=== PATIENT | female | born 1940 | race Caucasian/White ===

== ENCOUNTER → 2023-12-25 14:45 | Outpatient (REF) | payer MEDICARE, SELFPAY | LOC: RAD 14:45 | PROVIDERS: ATTENDING PHYSICIAN Obstetrics & Gynecology; FAMILY PHYSICIAN Family Medicine | DX: Z78.0 Asymptomatic menopausal state (principal) | CPT/HCPCS: 77080 ==

== ENCOUNTER 2024-01-28 14:53 | Emergency (ER) | payer MEDICARE, SELFPAY ==
[2024-01-28 14:56] VITALS: BP 179/108
--- NOTE | 2024-01-28 17:53 | ED.GENMED ---
History of Present Illness
<Leslee Roblero PA-C - Last Filed: 01/28/24 21:28>
General
Chief Complaint: DVT/Possible Blood Clot
Source: patient
Exam Limitations: none
Time Seen by Provider: 01/28/24 17:19
Nursing documentation reviewed up to this point in time: agreed with
Travel History
Have you had any contact with someone who has COVID-19?: No
Do you have any symptoms of coronavirus? Fever > 100 degrees, chills, cough, shortness of breath, sore throat, loss of taste or smell, muscle aches, or headache?: No
History of Present Illness
History of Present Illness:
Patient is a 83 year old female with hx HTN, HLD, GERD presenting from vein clinic after having an US that showed a DVT in her left lower leg. She has been experiencing some swelling and discomfort in her left lower leg over the past few weeks. She
also has noticed some discomfort in her mid back and worsening shortness of breath over the past weeks.
Patient denies worsening in back discomfort with deep breaths or movement. She denies any chest pain, fever, chills, dizziness, lightheadedness.
Given the persistence in her lower leg swelling and tenderness�she made an appoint with the pain clinic to have it evaluated. He was at this appointment earlier today when the DVT was found. She was then referred to the emergency department for
further evaluation given the coexisting shortness of breath and back discomfort.
Patient does have a history of a DVT in left lower leg back in 1966 after giving to her first child. She was admitted in the hospital for 10 days receiving anticoagulation.
Phy Exam
<Leslee Roblero PA-C - Last Filed: 01/28/24 21:28>
Physical Exam
Physical Exam:
General: In no apparent distress, non-toxic
Vitals: Mildly tachycardic, hypertensive; otherwise vital signs stable, afebrile
HEENT: Atraumatic, normocephalic; pupils equal round and reactive to light bilaterally, protecting airway
Neck: appears supple, no JVD
CV: Slightly tachycardic, regular rhythm, no evidence of cyanosis
Resp: Lungs clear with no wheezing, rales, rhonchi; no evidence of respiratory distress
Abd: Soft, nontender, non-distended
Extremities: Lower extremities nontender to palpation, negative Homans' sign bilaterally, +1 pitting edema bilateral lower extremities, DP pulses strong and palpable bilaterally
Neuro: alert and oriented x 3; grossly intact
Psych: Normal affect
Skin: Intact
Course
<Leslee Roblero PA-C - Last Filed: 01/28/24 21:28>
Orders/Labs/Results
Orders:
Orders
01/28/24 18:00
Electrocardiogram (*1) Urgent
Reason for Study: Shortness of Breath
EKG- Treatment ONCE
0.9% Sodium Chloride 1000 ml [Nss] 1,000 ml IV BOLUS
01/28/24 18:01
CT Chest Pe Study Urgent
Comment:
Reason For Exam: shortness of breath, known DVT
01/28/24 18:26
Complete Blood Count/With Diff Urgent
Comprehensive Metabolic Panel Urgent
D-Dimer Urgent
PTT Urgent
Prothrombin Time Urgent
Troponin I Urgent
01/28/24 21:03
Apixaban [Eliquis] 10 mg PO NOW STA
Abnormal Lab Results
01/28/24
18:26
RBC 3.87 L 10^6/uL
(4.20-5.40)
Hgb 11.4 L g/dL
(12.0-16.0)
Hct 33.9 L %
(37.0-47.0)
D-Dimer 0.66 H ug/mlFEU
(0.00-0.50)
BUN 26 H mg/dl
(7-17)
Glucose 105 H mg/dl
(70-99)
AST 45 H U/L
(14-36)
01/28/24 18:26
01/28/24 18:26
Vital Signs
Initial and Last Documented VS:
Initial Vital Signs
Temp Pulse Resp BP Pulse Ox
98 F 109 18 179/108 98
01/28/24 14:56 01/28/24 14:56 01/28/24 14:56 01/28/24 14:56 01/28/24 14:56
Last Documented Vital Signs
Temp Pulse Resp BP Pulse Ox
98 F 98 16 130/79 98
01/28/24 14:56 01/28/24 19:00 01/28/24 19:00 01/28/24 19:00 01/28/24 19:00
lynnette;Ahsan Gatica DO - Last Filed: 01/28/24 20:58>
Orders/Labs/Results
Orders:
Orders
01/28/24 18:00
Electrocardiogram (*1) Urgent
Reason for Study: Shortness of Breath
EKG- Treatment ONCE
0.9% Sodium Chloride 1000 ml [Nss] 1,000 ml IV BOLUS
01/28/24 18:01
CT Chest Pe Study Urgent
Comment:
Reason For Exam: shortness of breath, known DVT
01/28/24 18:26
Complete Blood Count/With Diff Urgent
Comprehensive Metabolic Panel Urgent
D-Dimer Urgent
PTT Urgent
Prothrombin Time Urgent
Troponin I Urgent
01/28/24 21:03
Apixaban [Eliquis] 10 mg PO NOW STA
Abnormal Lab Results
01/28/24
18:26
RBC 3.87 L 10^6/uL
(4.20-5.40)
Hgb 11.4 L g/dL
(12.0-16.0)
Hct 33.9 L %
(37.0-47.0)
D-Dimer 0.66 H ug/mlFEU
(0.00-0.50)
BUN 26 H mg/dl
(7-17)
Glucose 105 H mg/dl
(70-99)
AST 45 H U/L
(14-36)
01/28/24 18:26
01/28/24 18:26
Vital Signs
Initial and Last Documented VS:
Initial Vital Signs
Temp Pulse Resp BP Pulse Ox
98 F 109 18 179/108 98
01/28/24 14:56 01/28/24 14:56 01/28/24 14:56 01/28/24 14:56 01/28/24 14:56
Last Documented Vital Signs
Temp Pulse Resp BP Pulse Ox
98 F 98 16 130/79 98
01/28/24 14:56 01/28/24 19:00 01/28/24 19:00 01/28/24 19:00 01/28/24 19:00
<Leslee Roblero PA-C - Last Filed: 01/28/24 21:28>
MDM/Problems Addressed
Differential Diagnosis Includes:
DVT, PE, muscular strain, pneumonia, pneumothorax
MDM/Problems Addressed:
Patient is an 83-year-old female presenting for evaluation of back discomfort and worsening shortness of breath in the setting of a known DVT. Patient had ultrasound performed at vein clinic earlier today and was found to have a left lower
extremity DVT. Report to ER due to coexisting back discomfort and worsening shortness of breath to rule out PE. History of DVT in left leg in 1966 after childbirth. She takes a baby aspirin daily, no other anticoagulation. Patient is mildly
tachycardic and hypertensive, afebrile. She is relatively well-appearing in no apparent distress. Physical exam as documented above. Given shortness of breath and back discomfort in the setting of known DVT�will perform full workup to rule out
PE. Check basic labs coag studies, D-dimer, troponin. Will get CTA chest and check EKG
EKG shows sinus tachycardia without signs of ischemia. Troponin negative.
CBC with mild anemia appears chronic per patient. CMP without any clinically significant abnormalities. Kidney function normal with creatinine of 0.7. D-dimer elevated to 0.66 which not present given known DVT. Coagulation studies normal. CTA
chest pending.
CTA chest shows no evidence of pulmonary embolism or other acute disease of the chest. Patient remains not hypoxic and stable in emergency department. HR decreased to 98. Reviewed ultrasound report shows a nonocclusive DVT within the left
gastrinomas vein below the knee. No indication for admission at this point. Will start patient on Eliquis and discharge with primary care and hematology follow-up. Lengthy discussion regarding return precautions. Advised patient to stop aspirin
while taking Eliquis. Patient comfortable this plan. All questions answered
Chronic conditions affecting care:
Previous DVT, hypertension
Acute Exacerbation and/or Progression of Chronic Illness:
Acutely hypertensive, DVT
<Leslee Roblero PA-C - Last Filed: 01/28/24 21:28>
*Radiology
Radiology exam reviewed: radiology read reviewed
*Pulse Oximetry
Patient hypoxic: no
*EKG
Interpreted by ED Provider?: Yes
EKG Intrepretation Date: 01/28/24
Interpretation: abnormal
Comparison EKG: changes noted
Heart Rate: 102
Rate: normal
Rhythm: sinus
Elizabeth: normal axis
Interval: normal interval
QRS Pattern: normal QRS
Ischemia: no ischemia
*Sales Vendor Interpretation
Rate: tachycardiac
Interpretation: abnormal
Heart Rate: 104
Rhythm: sinus
*Critical Care Note
Total Time (30-74mins, 75-104mins- exclusive of procedures): Not Applicable
Data Reviewed
Review of Other/Old Records Reveals: Radiology Studies
Source: patient and spouse
ED Attending Note
<Leslee Roblero PA-C - Last Filed: 01/28/24 21:28>
-
Portions of this chart may have been created with voice recognition software.� Occasional wrong word or��sound alike� substitutions may have occurred due to the inherent limitations of voice recognition software.
<Ahsan Gatica DO - Last Filed: 01/28/24 20:58>
ED Attending Note
Patient seen and examined by attending physician: Yes
I performed the substantive portion of visit, reviewed & personally made and approve the management plan that is documented in note by myself or ALEJO.: Yes
ED Attending Note:
I agree with Megan's note.
Patient presents with positive ultrasound in her left calf for DVT. Patient has been complaining of some low back pain. She does not have dyspnea. Her physical exam is benign.
Patient having a CT to rule out PE. PE study is negative she can be discharged on Eliquis with dosing for thromboembolic disease.
Discharge Plan
Departure
Patient Disposition: Home (Routine Discharge)
Date of Disposition: 01/28/24
Time of Disposition: 21:08
Patient with high blood pressure during this ER visit?: Yes
Condition: Good
Covid-19: Not Applicable
Discharge Problem:
Deep vein thrombosis (DVT) of left lower extremity
Instructions: Deep Vein Thrombosis (Blood Clots in the Legs) (DC), Going Home on Blood Thinners
Prescriptions:
New
Eliquis 5 mg tablet
See Rx Instructions .ROUTE .COMPLEX Qty: 70 0RF
Rx Instructions:
Take 2 tabs PO BID x 7 days, then take 1 tab PO BID
No Action
aspirin 81 MG tablet,delayed release (DR/EC)
81 mg PO DAILY
losartan 25 MG tablet
25 mg PO Daily
acetaminophen [Tylenol Extra Strength] 500 MG tablet
500 mg PO QIDPRN PRN (Reason: mild PAIN)
cyclosporine [Restasis] 10 DROPS dropperette
1 drp BOTH EYES BID
fenofibrate nanocrystallized 145 MG tablet
145 mg PO DAILY
cholecalciferol (vitamin D3) 2,000 UNITS tablet
2,000 units PO DAILY
loratadine [Claritin] 10 mg Tablet
10 mg PO DAILY
famotidine [Pepcid] 40 mg Tablet
40 mg PO DAILYPRN PRN (Reason: gerd)
calcium polycarbophil [FiberCon] 625 mg Tablet
625 mg PO DAILY
docusate sodium [Colace] 100 mg Capsule
100 mg PO DAILYPRN PRN (Reason: constipation)
Referrals:
Otto Sloan MD [Family Provider] - Call in 1-3 days for appt
Avni Olivares MD [Active] - Call in 1-3 days for appt
Activity Restrictions/Additional Instructions:
- Return to the emergency department with any high fevers, chest pain, worsening shortness of breath, dizziness/lightheadedness, severe headache, severe back pain, numbness/tingling, weakness, worsening in current symptoms, or any other concerns
-You were given your first dose of Eliquis in the emergency department tonight. The prescription has been sent to your pharmacy�you should start this tomorrow morning. As discussed�you will take 10 mg (2 tabs) twice a day for the first 7 days and
then take 5 mg (1 tab) twice a day. You should follow-up with your primary care provider/hematology for further continuation of prescription
-You should discontinue your aspirin. You should avoid taking Motrin/ibuprofen/Aleve/aspirin while on Eliquis
-Follow-up with primary care and hematology for further evaluation/management of blood clot and lower leg
Interventions
Interventions:
*Risk Screen - Suicide Last Done: 01/28/24 18:31
*General Assessment Last Done: 01/28/24 18:31
*Neglect/Abuse Screening Last Done: 01/28/24 18:31
ED- Fall Risk Assessment Last Done: 01/28/24 18:31
*ED COVID-19 Vaccine History Last Done: 01/28/24 18:31
ED- Cardiac Assessment Last Done: 01/28/24 18:31
ED- Pulmonary Assessment Last Done: 01/28/24 18:31
ED-Peripheral Vascular Assessment Last Done: 01/28/24 18:31
ED-Skin Assessment Last Done: 01/28/24 18:31
[2024-01-28 18:31] VITALS: BMI 28.8
[2024-01-28 18:36] VITALS: BP 144/83
[2024-01-28] MEDS: NSS 1000 IV (18:44)
[2024-01-28 18:45] LABS: ALT (SGPT) 29 U/L (0-35); AST (SGOT) 45 U/L (14-36); Albumin 4.2 g/dl (3.5-5.0); Alkaline Phosphatase 57 U/L (38-126); Blood Urea Nitrogen 26 mg/dl (7-17); Calcium 9.5 mg/dl (8.4-10.2); Carbon Dioxide 29 mmol/L (22-30); Chloride 103 mmol/L (98-107); Estimated Creatinine Clearance 56 ml/min; Glucose 105 mg/dl (70-99); Sodium 139 mmol/L (135-145); Total Bilirubin 0.4 mg/dl (0.2-1.3); Total Protein 7.1 g/dl (6.3-8.2); eGFR > 60.00
[2024-01-28 18:55] LABS: Troponin I < 0.012 ng/ml
[2024-01-28 19:00] VITALS: BP 130/79
[2024-01-28 19:04] LABS: INR 1.01; PT 13.3 Sec (11.4-14.6)
[2024-01-28 19:05] LABS: APTT 29.2 Sec (23.4-35.0)
[2024-01-28 19:39] LABS: D-Dimer 0.66 ug/mlFEU (0.00-0.50)
[2024-01-28 19:42] LABS: % Basophils 1.3 % (0-2); % Eosinophils 4.2 % (0-6); % Immature Granulocytes 0.4 % (0-0.5); % Lymphocytes 24.1 % (20.5-51.1); Absolute Basophils 0.1 10^3/uL (0-0.2); Absolute Eosinophils 0.2 10^3/uL (0-0.7); Absolute Lymphocytes 1.3 10^3/uL (1.2-3.4); Absolute Monocytes 0.4 10^3/uL (0.1-0.6); Absolute Neutrophils 3.4 10^3/uL (1.4-6.5); Hematocrit 33.9 % (37.0-47.0); Hemoglobin 11.4 g/dL (12.0-16.0); Mean Corp Hgb Conc. 33.6 g/dL (33.0-37.0); Mean Corpuscular Hgb 29.5 pg (27.0-31.0); Mean Corpuscular Volume 87.6 fL (81.0-99.0); Mean Platelet Volume 10.3 fL (7.4-10.4); Nucleated Red Blood Cells % 0 %; Platelet Count 248 10^3/uL (130-400); Red Blood Cell Count 3.87 10^6/uL (4.20-5.40); Red Cell Dist. Width 13.5 % (11.5-14.5); White Blood Cell Count 5.4 10^3/uL (4.8-10.8)
[2024-01-28] MEDS: ELIQUIS 10 MG PO (21:22)
== END 2024-01-28 21:25 | disposition home or self-care (01) ==
LOC: EMR 14:53
PROVIDERS: Physician Assistant; EMERGENCY PHYSICIAN Emergency Medicine; FAMILY PHYSICIAN Family Medicine
DX: I82.402 Acute embolism and thrombosis of unspecified deep veins of left lower extremity (principal); I10 Essential (primary) hypertension; E78.00 Pure hypercholesterolemia, unspecified; K21.9 Gastro-esophageal reflux disease without esophagitis; D64.9 Anemia, unspecified; M41.9 Scoliosis, unspecified; Z79.01 Long term (current) use of anticoagulants; Z86.718 Personal history of other venous thrombosis and embolism
CPT/HCPCS: 99284; 96360; 71275; 80053; 84484; 85025; 85379; 85610; 85730; 93005; 93971; Q9967

== ENCOUNTER → 2024-05-06 09:48 | Outpatient (REF) | payer MEDICARE, SELFPAY ==
[2024-05-08 18:29] LABS: Protein S Total Antigen 88 % (63-126)
[2024-05-08 18:48] LABS: Beta-2-Glycoprotein I Ab. IgG <10 SGU (<=20); Beta-2-Glycoprotein I Ab. IgM <10 SMU (<=20)
[2024-05-08 21:04] LABS: Anti-Thrombin III Activity 79 % (76-128)
== END ==
LOC: REG 09:48
PROVIDERS: ATTENDING PHYSICIAN Internal Medicine Hematology & Oncology; FAMILY PHYSICIAN Family Medicine
DX: I82.4Z2 Acute embolism and thrombosis of unspecified deep veins of left distal lower extremity (principal)
CPT/HCPCS: 36415; 81240; 81241; 85300; 85305; 85610; 85613; 85730; 86146; 86147

== ENCOUNTER → 2024-05-10 09:19 | Outpatient (REF) | payer MEDICARE, SELFPAY ==
[2024-05-10 10:28] LABS: % Basophils 1.8 % (0-2); % Eosinophils 8.4 % (0-6); % Immature Granulocytes 0.9 % (0-0.5); % Lymphocytes 42.2 % (20.5-51.1); % Monocytes 10.5 % (1.7-9.3); % Neutrophils 36.2 % (42.2-75.2); Absolute Basophils 0.1 10^3/uL (0-0.2); Absolute Eosinophils 0.4 10^3/uL (0-0.7); Absolute Lymphocytes 1.9 10^3/uL (1.2-3.4); Absolute Monocytes 0.5 10^3/uL (0.1-0.6); Absolute Neutrophils 1.6 10^3/uL (1.4-6.5); Hematocrit 37.7 % (37.0-47.0); Hemoglobin 12.1 g/dL (12.0-16.0); Mean Corp Hgb Conc. 32.1 g/dL (33.0-37.0); Mean Corpuscular Hgb 29.2 pg (27.0-31.0); Mean Corpuscular Volume 91.1 fL (81.0-99.0); Nucleated Red Blood Cells % 0 %; Platelet Count 243 10^3/uL (130-400); Red Blood Cell Count 4.14 10^6/uL (4.20-5.40); Red Cell Dist. Width 13.5 % (11.5-14.5); White Blood Cell Count 4.4 10^3/uL (4.8-10.8)
[2024-05-10 11:03] LABS: Urine Albumin Negative (Neg - Trace); Urine Bilirubin Negative (Negative); Urine Character Slightly Cloudy (Clear); Urine Color Yellow; Urine Glucose Negative (Negative); Urine Ketone Negative (Negative); Urine Leukocyte 2+ (Negative); Urine Nitrite Negative (Negative); Urine Occult Blood Negative (Negative); Urine Urobilinogen Negative (Neg - 1+)
[2024-05-10 11:08] LABS: ALT (SGPT) 29 U/L (0-35); AST (SGOT) 48 U/L (14-36); Albumin 4.2 g/dl (3.5-5.0); Alkaline Phosphatase 55 U/L (38-126); Blood Urea Nitrogen 24 mg/dl (7-17); Calcium 9.7 mg/dl (8.4-10.2); Carbon Dioxide 30 mmol/L (22-30); Chloride 105 mmol/L (98-107); Glucose 89 mg/dl (70-99); HDL Cholesterol 71 mg/dl; LDL Cholesterol, Calculated 79 mg/dl; Potassium 4.6 mmol/L (3.5-5.1); Sodium 142 mmol/L (135-145); Total Bilirubin 0.6 mg/dl (0.2-1.3); Total Cholesterol 161 mg/dl (50-199); Total Protein 7.1 g/dl (6.3-8.2); Triglyceride 56 mg/dl (10-149); Uric Acid 5.7 mg/dl (2.5-6.2); Very Low Density Lipoprotein 11 mg/dl (0-30); eGFR 55.55
[2024-05-10 11:21] LABS: Free T4 1.06 ng/dl (0.78-2.19)
[2024-05-10 11:34] LABS: TSH 2.45 uIU/ml (0.47-4.68)
[2024-05-10 11:43] LABS: Erythrocyte Sed Rate 14 mm/hour (0-20)
[2024-05-10 11:54] LABS: Glycohemoglobin (HgbA1c) 5.7 % (4.0-5.6)
[2024-05-10 12:24] LABS: Vitamin D, 25-OH*** 35.9 ng/mL (30-80)
[2024-05-10 14:25] LABS: Urine Mucus Moderate
[2024-05-10 14:30] LABS: Urine Amorphous Seen; Urine Urothelial Cell 0-2 /LPF (FEW)
[2024-05-10 14:31] LABS: Urine Red Blood Cell 0-2 /HPF (0-2)
== END ==
LOC: REG 09:19
PROVIDERS: ATTENDING PHYSICIAN Family Medicine; REFERRING PHYSICIAN Internal Medicine Cardiovascular Disease
DX: Z00.00 Encounter for general adult medical examination without abnormal findings (principal); K21.9 Gastro-esophageal reflux disease without esophagitis; E78.00 Pure hypercholesterolemia, unspecified; I10 Essential (primary) hypertension; E05.90 Thyrotoxicosis, unspecified without thyrotoxic crisis or storm; E03.9 Hypothyroidism, unspecified; E55.9 Vitamin D deficiency, unspecified; R73.09 Other abnormal glucose
CPT/HCPCS: 36415; 80053; 80061; 81003; 81015; 82306; 83036; 84439; 84443; 84550; 85025; 85652

== ENCOUNTER → 2024-06-27 12:02 | Outpatient (REF) | payer MEDICARE, SELFPAY | LOC: HWWDC 12:02 | PROVIDERS: ATTENDING PHYSICIAN Obstetrics & Gynecology; FAMILY PHYSICIAN Family Medicine | DX: Z12.31 Encounter for screening mammogram for malignant neoplasm of breast (principal) | CPT/HCPCS: 77063; 77067 ==

== ENCOUNTER → 2024-07-04 08:54 | Outpatient (REF) | payer MEDICARE, SELFPAY ==
[2024-07-04 10:34] LABS: % Basophils 1.4 % (0-2); % Eosinophils 7.7 % (0-6); % Immature Granulocytes 0.2 % (0-0.5); % Lymphocytes 33.1 % (20.5-51.1); % Monocytes 8.9 % (1.7-9.3); % Neutrophils 48.7 % (42.2-75.2); Absolute Basophils 0.1 10^3/uL (0-0.2); Absolute Eosinophils 0.4 10^3/uL (0-0.7); Absolute Lymphocytes 1.7 10^3/uL (1.2-3.4); Absolute Monocytes 0.5 10^3/uL (0.1-0.6); Absolute Neutrophils 2.5 10^3/uL (1.4-6.5); Hematocrit 37.1 % (37.0-47.0); Hemoglobin 12.2 g/dL (12.0-16.0); Mean Corp Hgb Conc. 32.9 g/dL (33.0-37.0); Mean Corpuscular Volume 91.2 fL (81.0-99.0); Nucleated Red Blood Cells % 0 %; Platelet Count 236 10^3/uL (130-400); Red Blood Cell Count 4.07 10^6/uL (4.20-5.40); Red Cell Dist. Width 13.9 % (11.5-14.5)
[2024-07-04 11:15] LABS: ALT (SGPT) 26 U/L (0-35); AST (SGOT) 43 U/L (14-36); Albumin 4.3 g/dl (3.5-5.0); Alkaline Phosphatase 58 U/L (38-126); Blood Urea Nitrogen 24 mg/dl (7-17); Calcium 9.7 mg/dl (8.4-10.2); Carbon Dioxide 29 mmol/L (22-30); Chloride 104 mmol/L (98-107); Glucose 86 mg/dl (70-99); Potassium 4.4 mmol/L (3.5-5.1); Sodium 140 mmol/L (135-145); Total Protein 7.1 g/dl (6.3-8.2); eGFR > 60.00
[2024-07-04 12:11] LABS: Total Bilirubin 0.5 mg/dl (0.2-1.3)
== END ==
LOC: REG 08:54
PROVIDERS: ATTENDING PHYSICIAN Family Medicine
DX: R73.9 Hyperglycemia, unspecified (principal); R73.09 Other abnormal glucose; R94.5 Abnormal results of liver function studies; D72.819 Decreased white blood cell count, unspecified
CPT/HCPCS: 36415; 80053; 85025

== ENCOUNTER → 2024-07-26 13:13 | Outpatient (REF) | payer MEDICARE, SELFPAY | LOC: HWEVLT 13:13 | PROVIDERS: ATTENDING PHYSICIAN Radiology Diagnostic Radiology | DX: I83.892 Varicose veins of left lower extremity with other complications (principal) | CPT/HCPCS: 93971 ==

== ENCOUNTER → 2024-10-25 08:17 | Outpatient (REF) | payer MEDICARE, SELFPAY | LOC: HWRAD 08:17 | PROVIDERS: ATTENDING PHYSICIAN Family Medicine; REFERRING PHYSICIAN Specialist | DX: R94.5 Abnormal results of liver function studies (principal) | CPT/HCPCS: 76700 ==

== ENCOUNTER → 2025-05-31 09:42 | Outpatient (REF) | payer MEDICARE, SELFPAY | LOC: MRI 3T 09:42 | PROVIDERS: ATTENDING PHYSICIAN Specialist; FAMILY PHYSICIAN Family Medicine | DX: K76.89 Other specified diseases of liver (principal); K83.8 Other specified diseases of biliary tract | CPT/HCPCS: 74183; A9575 ==

== ENCOUNTER → 2025-06-28 09:11 | Outpatient (REF) | payer MEDICARE, SELFPAY ==
[2025-06-28 10:27] LABS: Hematocrit 35.8 % (37.0-47.0); Hemoglobin 11.5 g/dL (12.0-16.0); Mean Corp Hgb Conc. 32.1 g/dL (33.0-37.0); Mean Corpuscular Volume 92.3 fL (81.0-99.0); Nucleated Red Blood Cells % 0 %; Platelet Count 271 10^3/uL (130-400); Red Cell Dist. Width 13.7 % (11.5-14.5)
[2025-06-28 10:55] LABS: Urine Character Slightly Cloudy (Clear)
[2025-06-28 10:59] LABS: ALT (SGPT) 23 U/L (0-35); AST (SGOT) 35 U/L (14-36); Albumin 4.1 g/dl (3.5-5.0); Alkaline Phosphatase 49 U/L (38-126); Blood Urea Nitrogen 19 mg/dl (7-17); Calcium 9.5 mg/dl (8.4-10.2); Carbon Dioxide 30 mmol/L (22-30); Chloride 106 mmol/L (98-107); Glucose 83 mg/dl (70-99); HDL Cholesterol 65 mg/dl; LDL Cholesterol, Calculated 71 mg/dl; Potassium 4.5 mmol/L (3.5-5.1); Sodium 141 mmol/L (135-145); Total Protein 6.9 g/dl (6.3-8.2); Uric Acid 4.6 mg/dl (2.5-6.2); Very Low Density Lipoprotein 10 mg/dl (0-30); eGFR > 60.00
[2025-06-28 11:59] LABS: Vitamin D, 25-OH*** 38.7 ng/mL (30-80)
[2025-06-28 12:13] LABS: TSH 2.37 uIU/ml (0.47-4.68)
[2025-06-28 13:06] LABS: Glycohemoglobin (HgbA1c) 5.5 % (4.0-5.6)
== END ==
LOC: REG 09:11
PROVIDERS: ATTENDING PHYSICIAN Family Medicine; OTHER PHYSICIAN Internal Medicine Cardiovascular Disease; REFERRING PHYSICIAN Specialist
DX: Z00.00 Encounter for general adult medical examination without abnormal findings (principal); E78.00 Pure hypercholesterolemia, unspecified; R73.9 Hyperglycemia, unspecified; R73.09 Other abnormal glucose; I10 Essential (primary) hypertension; R94.5 Abnormal results of liver function studies; E55.9 Vitamin D deficiency, unspecified
CPT/HCPCS: 36415; 80053; 80061; 81003; 82306; 83036; 83718; 84439; 84443; 84550; 85025; 85652

== ENCOUNTER → 2025-07-26 08:20 | Outpatient (REF) | payer MEDICARE, SELFPAY | LOC: HWRCS 08:20 | PROVIDERS: ATTENDING PHYSICIAN Internal Medicine Cardiovascular Disease; FAMILY PHYSICIAN Family Medicine | DX: R00.0 Tachycardia, unspecified (principal); I35.1 Nonrheumatic aortic (valve) insufficiency | CPT/HCPCS: 93306 ==

== ENCOUNTER → 2025-07-27 07:27 | Outpatient (REF) | payer MEDICARE, SELFPAY | LOC: HWRCS 07:27 | PROVIDERS: ATTENDING PHYSICIAN Internal Medicine Cardiovascular Disease; FAMILY PHYSICIAN Family Medicine | DX: R07.89 Other chest pain (principal); R94.31 Abnormal electrocardiogram [ECG] [EKG] | CPT/HCPCS: 78452; 93017; A9500; J2785 ==

== ENCOUNTER → 2025-08-07 11:42 | Outpatient (REF) | payer MEDICARE, SELFPAY | LOC: HWWDC 11:42 | PROVIDERS: ATTENDING PHYSICIAN Obstetrics & Gynecology; FAMILY PHYSICIAN Family Medicine | DX: Z12.31 Encounter for screening mammogram for malignant neoplasm of breast (principal) | CPT/HCPCS: 77063; 77067 ==

== ENCOUNTER → 2025-10-26 09:18 | Outpatient (REF) | payer MEDICARE, SELFPAY ==
[2025-10-26 10:28] LABS: Hematocrit 38.6 % (37.0-47.0); Hemoglobin 12.2 g/dL (12.0-16.0); Mean Corp Hgb Conc. 31.6 g/dL (33.0-37.0); Mean Corpuscular Volume 92.3 fL (81.0-99.0); Nucleated Red Blood Cells % 0 %; Platelet Count 268 10^3/uL (130-400); Red Cell Dist. Width 13.6 % (11.5-14.5)
[2025-10-26 11:02] LABS: Iron 108 ug/dl (37-170)
[2025-10-26 11:12] LABS: Total Iron Binding Capacity 405 ug/dl (265-497)
[2025-10-26 11:40] LABS: Ferritin 60.2 ng/ml (11.1-264.0)
== END ==
LOC: REG 09:18
PROVIDERS: ATTENDING PHYSICIAN Family Medicine
DX: Z87.898 Personal history of other specified conditions (principal); D64.9 Anemia, unspecified; Z00.00 Encounter for general adult medical examination without abnormal findings
CPT/HCPCS: 36415; 71046; 82728; 83540; 83550; 85025